=== PATIENT | female | born 1970 | race Two or more races ===

== ENCOUNTER 2018-12-01 14:33 | Inpatient (IN) | payer OTHER ==
[~2018-12-01] VITALS: Ht 160 cm; Wt 53.5 kg
[~2018-12-01 14:33] MED LIST: LEVAQUIN750 MG PO; PROTONIX40 MG PO; ULTRACET PO
--- NOTE | 2018-12-01 14:45 | NUR ---
SE RECIBE PTE MROE Y ORIENTADA X3,REFIERE TENER [facility] ,LE [facility] EL VIERNES AR[place]JA 7 DE HEMOGLOBINA LIEBERMAN GINECOLOGO ,DR.ESTEBAN ALMEIDA ,DR.MORALES GILBERT.
[2018-12-01] MEDS ORDERED: IRON325 MG (14:50)
--- NOTE | 2018-12-01 15:12 | NUR ---
TX. OFRECIDO POR MR. CANALES QUIEN ORIENTA SOBRE EL TX. EXTRAE MUESTRAS DE CHERYL BAJO MEDIDAS ASEPTICAS ROTULA Y ENVIA AL LABORATORIO. CANALIZA Y COLOCA H/L.
--- NOTE | 2018-12-01 15:49 | NUR ---
SE NOTIFICA AL BANCO DE CHERYL DE [facility] PARA 3 UNIDADES DE PRBSs. SE HABLA CON MR. LOVE.
--- NOTE | 2018-12-01 16:56 | NUR ---
RE EVALUADA POR LA DRA. DE LA ROSA QUIEN COLOCA CONSULTA CON MEDICINA INTERNA Y GINECOLOGIA.
--- NOTE | 2018-12-01 16:57 | NUR ---
PACIENTE RE EVALUADA POR LA DRA. DE LA ROSA QUIEN COLOCA CONSULTA CON HEMATOLOGIA Y CON GINECOLOGIA.
--- NOTE | 2018-12-02 01:17 | NUR ---
PTEESREEVALUADA POR CYNDIE ORDENA MEDICAMENTOSLOS CUALESSE ADMINISTRAN Y TOLERA,LEESCOLOCADO IVF. ME COMUNICO CON LABORATORIO CON SANTO ME INDICA NO ESTAR PRBC DISPONIBLE Y ME COMUNICO A BANCO DESANGRECON BURRELL Y ME INDICA ESTA EN PROCESO.PTESE MANTIENE EN OBSERVBACION POR CAMBIOS.
--- NOTE | 2018-12-02 04:22 | NUR ---
ME COMUNICO CON LABORATORIO Y ME INDICAN QUE LAS UNIDADES DE PRBC NO ESTAN DISPONIBLES TODAVIA.
--- NOTE | 2018-12-02 04:56 | NUR ---
SE LLAMA A MARTINEZ DE BANCO DE CHERYL Y ESTA INDICA SE PREPARAN LAS UNIDADES YA QUE AL INICIO ESTABAN HOLD BRENDEN,ESTAN EN PROCESO DE PREPARAR PARA ENVIAR.
--- NOTE | 2018-12-02 06:40 | NUR ---
SEME NOTIFICA DE MAICO DE CHERYLMANSOOR CHEN UNIDADES DE PRBC DIPONIBLES EN LABORATORIO
--- NOTE | 2018-12-02 07:31 | NUR ---
SE RECIBE PACINETE ALERTA Y ORIENTADA DEL TURNO ANTERIOR SE OBSERVA CON IVF PATENTE EMI DE EDEMA.PACIENTE EN CONSULTA CON DR. SAAB , Y DR. BURRELL EN ESPERA DE TRANSFUNDIR 3 UNIDADES DE CHERYL SE MANTIENEEN OSBERVACION PO RCAMBIOS EN LIEBERMAN CONDICON.
--- NOTE | 2018-12-02 08:20 | NUR ---
SE ORIENTA AL PACIENTE SOBRE SEGUNDA CANALIZACION PARA TRANSFUCION DE CHERYL. PACIENTE REFIER ENTENDER. SE CANALIZA AL PACIENTE CON UN ANGIO #18 EN JOSEO NILAY. SE VERIFICA LA PATENTICIDAD Y LA MISMA ESTA PANTENTE. SE OBSERVA EL AREA EMI DE EDEMA Y ENRITHEMA.
--- NOTE | 2018-12-02 16:00 | NUR ---
SE RECIBE PT ALERTA Y ORIENTADA EN TIEMPO LUGAR Y PERSONA, PT RECIBIENDO TRANSFUSION DE PRBC , VENOPUNCION PATENTE. PT EVALUADA POR DR LYNNE. SE MANTIENE EN CAMA CON BARANAS ELEVADAS, TIMBRE ACCESIBLE Y EN OBSERVACION POR CAMBIOS. PENDIENTE DE SER EVALUADA POR DR ASHANTI GILBERT.
[2018-12-06] MEDS ORDERED: CODE1TAB37 PO (08:10)
[2018-12-06] MEDS ORDERED: KETO10TA2 PO (08:10)
== END 2018-12-06 08:22 | disposition home or self-care (01) | DRG 743 ==
LOC: ER 14:33 → OB/GYN 12-02 20:25
PROVIDERS: ADMIT Obstetrics & Gynecology Maternal & Fetal Medicine
PROC: 30233N1 Transfusion of Nonautologous Red Blood Cells into Peripheral Vein, Percutaneous Approach (ICD-10-PCS; 2018-12-02)
PROC: 0DNW0ZZ Release Peritoneum, Open Approach (ICD-10-PCS; 2018-12-04)
PROC: 0UT90ZL Resection of Uterus, Supracervical, Open Approach (ICD-10-PCS; principal; 2018-12-04 09:30)
DX: N80.0 Endometriosis of uterus (principal); D50.0 Iron deficiency anemia secondary to blood loss (chronic)

== ENCOUNTER 2018-12-16 06:00 | Day surgery (SDC) | payer OTHER ==
[~2018-12-16] VITALS: Ht 160 cm; Wt 52.2 kg
[~2018-12-16 06:00] MED LIST changes: +CODE1TAB37 PO; +IRON325 MG; +KETO10TA2 PO
[2018-12-16] MEDS ORDERED: ANALPRAM HC 2.530 GM TOP (15:39)
[2018-12-16] MEDS ORDERED: RECTICARE30 GM TOP (15:40)
[2018-12-16] MEDS ORDERED: KETO10TA2 PO (15:40)
== END 2018-12-16 20:10 | disposition home or self-care (01) ==
LOC: CIR.AMB 06:00 → ER 08:44 → SURG 08:44 → O/R 08:44 → SEC-K 08:44 → SURG 09:55 → EDSTATUS 16:00 → CIR.AMB 20:10 → SURG 21:24 → O/R 21:24
DX: R15.9 Full incontinence of feces (principal)

== ENCOUNTER 2022-06-06 12:12 | Emergency (ER) | payer OTHER ==
[~2022-06-06] VITALS: Ht 160 cm; Wt 49.9 kg
[~2022-06-06 12:12] MED LIST changes: +ANALPRAM HC 2.530 GM TOP; +RECTICARE30 GM TOP
== END 2022-06-06 18:38 | disposition home or self-care (01) ==
LOC: ER 12:12
DX: N39.0 Urinary tract infection, site not specified (principal); R51.9 Headache, unspecified; Z87.442 Personal history of urinary calculi; Z20.822 Contact with and (suspected) exposure to COVID-19

== ENCOUNTER 2023-10-30 06:15 | Day surgery (SDC) | payer OTHER ==
[2023-10-30] MEDS ORDERED: FLUMAZENIL 0.5 MG/5 ML ML IV STA (10:06)
[2023-10-30] MEDS ORDERED: NALOXONE HCL 0.4 MG/ML AMPUL IV STA (10:06)
[2023-10-30] MEDS ORDERED: fentaNYL CITRATE 50 MCG/ML AMPUL IV PUSH ONE (10:15)
[2023-10-30] MEDS ORDERED: DIPHENHYDRAMINE HCL 50 MG/ML VIAL 1ML IV ONE (10:15)
[2023-10-30] MEDS ORDERED: MIDAZOLAM HCL 2 MG/2 ML VIAL IV ONE (10:15)
== END 2023-10-30 11:55 | disposition home or self-care (01) ==
LOC: AMB-ENDOS 06:15
PROVIDERS: ATTEND Colon & Rectal Surgery
DX: Z86.010 Personal history of colon polyps (principal)

== ENCOUNTER 2023-12-12 07:33 | Outpatient (CLI) | payer OTHER | END 2023-12-12 07:47 | disposition home or self-care (01) | LOC: TOM 07:33 | DX: Z12.11 Encounter for screening for malignant neoplasm of colon (principal) ==